=== PATIENT | female | born 1945 | race Caucasian/White ===

== ENCOUNTER → 2023-08-19 09:16 | Outpatient (BNVA) | payer MEDICARE, OTHER, SELFPAY | PROVIDERS: Referring Provider Internal Medicine Endocrinology, Diabetes & Metabolism; Visit Provider Specialist | DX: G44.52 New daily persistent headache (NDPH) (principal); G50.0 Trigeminal neuralgia; G93.89 Other specified disorders of brain | CPT/HCPCS: 99205 ==

== ENCOUNTER → 2023-11-14 12:01 | Outpatient (BNVA) | payer MEDICARE, OTHER, SELFPAY | PROVIDERS: Visit Provider Specialist | DX: R51.9 Headache, unspecified (principal); G50.0 Trigeminal neuralgia | CPT/HCPCS: 99214 ==

== ENCOUNTER → 2024-03-24 11:58 | Outpatient (BNVA) | payer MEDICARE, OTHER, SELFPAY | PROVIDERS: Visit Provider Specialist | DX: G50.0 Trigeminal neuralgia; R03.0 Elevated blood-pressure reading, without diagnosis of hypertension; G43.711 Chronic migraine without aura, intractable, with status migrainosus | CPT/HCPCS: 99214 ==

== ENCOUNTER → 2024-05-14 13:54 | Outpatient (BNVA) | payer MEDICARE, OTHER, SELFPAY | PROVIDERS: Visit Provider Specialist | DX: R03.0 Elevated blood-pressure reading, without diagnosis of hypertension (principal); G43.711 Chronic migraine without aura, intractable, with status migrainosus | CPT/HCPCS: 99214 ==

== ENCOUNTER → 2024-06-25 14:29 | Outpatient (BNVA) | payer MEDICARE, OTHER, SELFPAY | PROVIDERS: Visit Provider Specialist | DX: R03.0 Elevated blood-pressure reading, without diagnosis of hypertension (principal); G43.711 Chronic migraine without aura, intractable, with status migrainosus | CPT/HCPCS: 99213 ==

== ENCOUNTER → 2024-11-23 09:34 | Outpatient (BNVA) | payer MEDICARE, OTHER, SELFPAY | PROVIDERS: Visit Provider Specialist | DX: R03.0 Elevated blood-pressure reading, without diagnosis of hypertension (principal); G43.711 Chronic migraine without aura, intractable, with status migrainosus | CPT/HCPCS: 99214 ==

== ENCOUNTER → 2025-04-20 11:21 | Outpatient (BNVA) | payer MEDICARE, OTHER, SELFPAY | PROVIDERS: Visit Provider Specialist | DX: R03.0 Elevated blood-pressure reading, without diagnosis of hypertension (principal); G43.711 Chronic migraine without aura, intractable, with status migrainosus | CPT/HCPCS: 99214 ==